=== PATIENT | female | born 1955 | race African-American/Black ===

== ENCOUNTER 2016-09-20 11:59 | Emergency (ER) | payer MEDICAID | END 2016-09-20 14:19 | disposition home or self-care (01) | LOC: D.ER 11:59 | DX: Z98.890 Other specified postprocedural states (principal); S02.652A Fracture of angle of left mandible, initial encounter for closed fracture; X58.XXXA Exposure to other specified factors, initial encounter; Y93.89 Activity, other specified; Y92.89 Other specified places as the place of occurrence of the external cause; G47.00 Insomnia, unspecified; J06.9 Acute upper respiratory infection, unspecified; J44.9 Chronic obstructive pulmonary disease, unspecified; J45.909 Unspecified asthma, uncomplicated ==

== ENCOUNTER 2017-12-03 17:56 | Emergency (ER) | payer MEDICAID ==
[~2017-12-03] VITALS: Ht 149.9 cm; Wt 47.7 kg
[2017-12-03 18:08] VITALS: Ht 149.9 cm; Wt 47.7 kg
[2017-12-03] MEDS ORDERED: PREDNISONE20 MG PO (19:16)
[2017-12-03] MEDS ORDERED: KENALOG 0.1 % 115 GM TOPICAL (19:16)
[2017-12-03 19:33] VITALS: BP 121/54
== END 2017-12-03 19:34 | disposition home or self-care (01) ==
LOC: D.ER 17:56
DX: L25.9 Unspecified contact dermatitis, unspecified cause (principal)

== ENCOUNTER 2018-01-11 14:24 | Inpatient (IN) | payer MEDICAID ==
[~2018-01-11] VITALS: Ht 149.9 cm; Wt 49.9 kg
--- NOTE | ~2018-01-11 | MORECARE ---
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 PHYSICIAN: REFERRING PHYSICIAN: SILVIO EDUARDO MD DATE OF SERVICE: 01/11/18 Discharge Plan Patient Name: AMY VERNON Facility: [facility]:[place] : 1955 Planned Disposition: Home Anticipated Discharge Date: 01/14/18 Discharge Date: 01/14/2018 Expected LOS: 3 Initial Reviewer: [email or web address] Initial Review Date: 01/14/2018 Generated: 01/14/18 6:34 pm Comments DCP- Discharge Planning Updated by [email or web address]: Mk Henderson on 01/14/18 4:[address] Patient Name: AMY VERNON Admission Status: ER Accout number: [id number] Admission Date: 01-11-2018 : 1955 Admission Diagnosis:SHORTNESS OF BREATH Attending: SILVIO EDUARDO Current LOS: 3 Anticipated DC Date: 01-14-2018 Planned Disposition: Home Primary Insurance: MEDICAID [id number] Discharge Planning Comments: CM RECEIVED DISCHARGE ORDER, MET WITH PT IN ROOM TO DISCUSS DISCHARGE PLANNING AND NEEDS. PT REPORTS LIVING AT HOME INDEPENDENTLY WITH HER SPOUSE. PT HAS NO MEDICAL EQUIPMENT AND NO OUTSIDE SERVICES ASSISTING IN THE HOME. CM DISCUSSED AVAILABILITY OF HOME HEALTH, REHAB SERVICES AND MEDICAL EQUIPMENT. PT DENIES DISCHARGE NEEDS, REPORTS HER SPOUSE WILL PICK HER UP FOR DISCHARGE HOME TODAY. TRAFFIC COURT MAGISTRATE NURSE NOTIFIED. Instrument Panel Assembler: Mk Henderson DCPIA - Discharge Planning Initial Assessment Updated by [email or web address]: Mk Henderson on 01/14/18 5:33 pm * Is the patient Alert and Oriented? Yes * How many steps to enterexit or inside your home? NONE * PCP NO PRIMARY DOCTOR DUE TO TRAVEL [place] [employer] [place] THROUGHOUT THE YEAR. * Pharmacy [facility] * Preadmission Environment Home with Family * ADLs Independent * Equipment None * Other Equipment NO MEDICAL EQUIPMENT PROVIDER PREFERENCE * List name and contact numbers for known caregivers / representatives who currently or will assist patient after discharge: ABEL VERNON, SPOUSE, [place] [phone] * Verbal permission to speak to the caregivers and representatives has been obtained from the patient. N/A * Community resources currently utilized None * Please name any agencies selected above. NONE * Additional services required to return to the preadmission environment? No * Can the patient safely return to the preadmission environment? Yes * Has this patient been hospitalized within the prior 30 days at any hospital? No Patient Name: AMY VERNON Page [id number] All edits/amendments must be made on the electronic document DICTATION DATE: 01/14/18 1734 [employer] FIELD SUPERVISOR: 01/14/18 1734 RPT#: [id number] DC DATE:01/14/18 STATUS: DIS IN [facility] [address] [place] [address] END OF REPORT
[~2018-01-11 14:24] MED LIST: KENALOG 0.1 % 115 GM TOPICAL; PREDNISONE20 MG PO
[2018-01-11] MEDS ORDERED: PROAIR HFA8.5 GM INH (14:34)
[2018-01-11 14:58] LABS: BASOPHILS 0.1 % (0-2); EOSINOPHILS 0.1 % (0-7); HEMATOCRIT 37.5 % (36.0-48.0); HEMOGLOBIN 12.7 g/dL (12-16); IMMATURE GRANULOCYTES 0.4 % (0-5); LYMPHOCYTES 13.2 % (15-50); MCH 28.5 pg (26.0-34.0); MCHC 33.9 g/dL (31.0-37.0); MCV 84.3 fL (80.0-100.0); MEAN PLATELET VOLUME 9.8 fL (7.4-10.4); MONOCYTES 9.8 % (2-11); NEUTROPHILS 76.4 % (40-80); PLATELET COUNT 233 10x3/uL (130-400); RBC 4.45 10x6/uL (4.00-5.40); RDW 13.6 % (11.5-14.5); WBC 11.7 10x3/uL (4.8-10.8)
[2018-01-11 15:15] LABS: ALBUMIN 3.2 g/dL (3.4-5.0); ALKALINE PHOSPHATASE 108 U/L (46-116); ALT (SGPT) 15 U/L (10-68); BILIRUBIN - TOTAL 0.44 mg/dL (0.2-1.3); CALC OSMOLALITY 268 mosm/kg (275-300); CALCIUM 9.1 mg/dL (8.5-10.1); CHLORIDE - SERUM 97 mmol/L (98-107); CREATININE - SERUM 0.8 mg/dL (0.6-1.3); GLUCOSE 126 mg/dL (74-106); POTASSIUM - SERUM 3.5 mmol/L (3.5-5.1); PROTEIN - SERUM 8.5 g/dL (6.4-8.2); SODIUM 134 mmol/L (136-145); UREA NITROGEN 9 mg/dL (7-18); eGFR NON AFRICAN AMERICAN 77 mL/min (90-120)
[2018-01-11 16:45] VITALS: BP 104/66
[2018-01-11 18:10] VITALS: BP 122/60; BMI 22.2
[2018-01-11 20:30] VITALS: BP 105/62
[2018-01-12 00:30] VITALS: BP 115/58
[2018-01-12 04:30] VITALS: BP 104/53
[2018-01-12 08:46] VITALS: BP 112/71
[2018-01-12 11:45] VITALS: BP 116/61
[2018-01-12 14:24] VITALS: Ht 149.9 cm; Wt 49.9 kg
[2018-01-12 15:59] VITALS: BP 101/55
[2018-01-12 17:38] LABS: APPEARANCE CLEAR (CLEAR); BILIRUBIN NEGATIVE (NEGATIVE); COLOR YELLOW (YELLOW); GLUCOSE NEGATIVE (NEGATIVE); KETONE NEGATIVE (NEGATIVE); NITRITE NEGATIVE (NEGATIVE); PROTEIN NEGATIVE (NEGATIVE)
[2018-01-12 20:00] VITALS: BP 114/52
[2018-01-13] VITALS: BP 120/54
[2018-01-13 06:15] LABS: BASOPHILS 0.3 % (0-2); EOSINOPHILS 0.5 % (0-7); IMMATURE GRANULOCYTES 0.7 % (0-5); LYMPHOCYTES 14.8 % (15-50); MCH 27.8 pg (26.0-34.0); MCHC 33.3 g/dL (31.0-37.0); MCV 83.3 fL (80.0-100.0); MEAN PLATELET VOLUME 9.2 fL (7.4-10.4); MONOCYTES 10.7 % (2-11); PLATELET COUNT 250 10x3/uL (130-400)
[2018-01-13 06:26] LABS: CALC OSMOLALITY 275 mosm/kg (275-300); CALCIUM 8.2 mg/dL (8.5-10.1); CARBON DIOXIDE 28.1 mmol/L (21.0-32.0); CHLORIDE - SERUM 106 mmol/L (98-107); CREATININE - SERUM 0.6 mg/dL (0.6-1.3); GLUCOSE 123 mg/dL (74-106); POTASSIUM - SERUM 3.2 mmol/L (3.5-5.1); SODIUM 139 mmol/L (136-145); eGFR NON AFRICAN AMERICAN > 90 mL/min (90-120)
[2018-01-13 06:27] LABS: UREA NITROGEN 4 mg/dL (7-18)
[2018-01-13 06:32] LABS: HEMATOCRIT 28.5 % (36.0-48.0); HEMOGLOBIN 9.5 g/dL (12-16); RBC 3.42 10x6/uL (4.00-5.40); WBC 7.5 10x3/uL (4.8-10.8)
[2018-01-13 06:37] VITALS: BP 125/60
[2018-01-13 07:30] VITALS: BP 123/61
[2018-01-13 11:00] VITALS: BP 115/58
[2018-01-13 15:47] VITALS: BP 108/54
[2018-01-13 20:00] VITALS: BP 115/57
[2018-01-14] VITALS: BP 126/60
[2018-01-14 04:00] VITALS: BP 97/50
[2018-01-14 04:42] LABS: BASOPHILS 0.3 % (0-2); EOSINOPHILS 1.8 % (0-7); HEMATOCRIT 29.4 % (36.0-48.0); HEMOGLOBIN 9.8 g/dL (12-16); IMMATURE GRANULOCYTES 1.9 % (0-5); LYMPHOCYTES 24.8 % (15-50); MCH 27.8 pg (26.0-34.0); MCHC 33.3 g/dL (31.0-37.0); MCV 83.3 fL (80.0-100.0); MEAN PLATELET VOLUME 8.8 fL (7.4-10.4); NEUTROPHILS 59.2 % (40-80); PLATELET COUNT 264 10x3/uL (130-400); RBC 3.53 10x6/uL (4.00-5.40); WBC 6.2 10x3/uL (4.8-10.8)
[2018-01-14 05:03] LABS: CALC OSMOLALITY 278 mosm/kg (275-300); CALCIUM 8.8 mg/dL (8.5-10.1); CARBON DIOXIDE 29.3 mmol/L (21.0-32.0); CHLORIDE - SERUM 106 mmol/L (98-107); CREATININE - SERUM 0.7 mg/dL (0.6-1.3); GLUCOSE 123 mg/dL (74-106); POTASSIUM - SERUM 3.5 mmol/L (3.5-5.1); SODIUM 141 mmol/L (136-145); UREA NITROGEN 4 mg/dL (7-18); eGFR NON AFRICAN AMERICAN 90 mL/min (90-120)
[2018-01-14 07:57] VITALS: BP 105/47
[2018-01-14] MEDS ORDERED: LEVAQUIN750 MG PO (09:32)
[2018-01-14] MEDS ORDERED: PROTONIX40 MG PO (09:32)
== END 2018-01-14 11:10 | disposition home or self-care (01) | DRG 193 ==
LOC: D.ER 14:24 → D.M2 17:40 → D.EDHOLD 17:40 → D.M2 17:43
PROVIDERS: Emergency Medicine; Internal Medicine Nephrology
DX: J18.9 Pneumonia, unspecified organism (principal); J96.21 Acute and chronic respiratory failure with hypoxia; J44.0 Chronic obstructive pulmonary disease with (acute) lower respiratory infection; J44.1 Chronic obstructive pulmonary disease with (acute) exacerbation; F17.213 Nicotine dependence, cigarettes, with withdrawal